=== PATIENT | female | born 2005 ===

== ENCOUNTER 2024-05-14 16:16 | Emergency (ER) | payer OTHER, SELFPAY ==
[2024-05-14 16:16] VITALS: BMI 32.9
[2024-05-14 16:18] VITALS: BP 112/72
[2024-05-14] MEDS: ZOFRAN 4 MG IV ×2 (16:40→18:11)
[2024-05-14 16:44] LABS: % Basophils 0.3 % (0-2); % Immature Granulocytes 0.3 % (0-0.5); % Monocytes 1.5 % (1.7-9.3); % Neutrophils 90.9 % (42.2-75.2); Absolute Lymphocytes 0.8 10^3/uL (1.2-3.4); Absolute Monocytes 0.2 10^3/uL (0.1-0.6); Absolute Neutrophils 9.8 10^3/uL (1.4-6.5); Hematocrit 40.5 % (37.0-47.0); Hemoglobin 13.4 g/dL (12.0-16.0); Mean Corp Hgb Conc. 33.1 g/dL (33.0-37.0); Mean Corpuscular Hgb 26.1 pg (27.0-31.0); Mean Corpuscular Volume 78.9 fL (81.0-99.0); Mean Platelet Volume 9.1 fL (7.4-10.4); Nucleated Red Blood Cells % 0 %; Platelet Count 368 10^3/uL (130-400); Red Blood Cell Count 5.13 10^6/uL (4.20-5.40); White Blood Cell Count 10.8 10^3/uL (4.8-10.8)
[2024-05-14 16:53] LABS: HCG, Serum Qualitative Screen Negative
[2024-05-14 17:00] LABS: ALT (SGPT) 31 U/L (0-35); AST (SGOT) 31 U/L (14-36); Albumin 5.2 g/dl (3.5-5.0); Alkaline Phosphatase 85 U/L (38-126); Blood Urea Nitrogen 11 mg/dl (7-17); Calcium 10.2 mg/dl (8.4-10.2); Carbon Dioxide 21 mmol/L (22-30); Chloride 102 mmol/L (98-107); Glucose 130 mg/dl (70-99); Lipase 33 U/L (23-300); Potassium 4.5 mmol/L (3.5-5.1); Sodium 139 mmol/L (135-145); Total Bilirubin 0.7 mg/dl (0.2-1.3); eGFR > 60.00
[2024-05-14] MEDS: TORADOL 15 MG IV (18:12)
[2024-05-14 18:22] VITALS: BP 122/55
--- NOTE | 2024-05-14 18:35 | ED.GENMED ---
History of Present Illness
<Kya Morales, DIRECTOR OF PATIENT SAFETY - Last Filed: 05/14/24 23:25>
General
Chief Complaint: Abdominal Pain
Source: patient and family (mom at bedside)
Exam Limitations: none
Time Seen by Provider: 05/14/24 17:32
Nursing documentation reviewed up to this point in time: agreed with
History of Present Illness
History of Present Illness:
19 yo female with no significant PMHX states she awakened at 4 a.m, with N/V/D and generalized stomach pains. Vomited several times, then dry heaving. Last emesis 40 minutes ago, received Zofran in Triage and feels better but still a little
nauseated. Had large diarrheal non bloody stool 6 a.m and a few little squirts' since. No known sick contacts, no recent travel. Denies fever, CP, SOB. Abdominal pain was 7/10 earlier, now 5/10. Denies UTI symptoms.
Past History
<Kya Morales, DIRECTOR OF PATIENT SAFETY - Last Filed: 05/14/24 23:25>
Past History
ED Past Medical History: Asthma
ED Past Surgical History: None
Social History
Tobacco: Non-smoker
Alcohol: None
Personal: Single
Living: with family
Review of Systems
<Kya Morales, DIRECTOR OF PATIENT SAFETY - Last Filed: 05/14/24 23:25>
Review of Systems
Allergies reviewed?: Yes
All Other Systems: ROS reviewed and negative except as documented in HPI and ROS
Constitutional: Denies fever
EENT: Denies sore throat
Respiratory: Denies trouble breathing
Cardiac: Denies chest pain
ABD/GI: Reports abdominal pain, nausea, vomiting and diarrhea; Denies bloody stools or black stools
: Denies dysuria, frequency, difficulty voiding or urgency
Musculoskeletal: Reports no symptoms
Skin: Reports no symptoms
Neurological: Reports no symptoms
Phy Exam
<Kya Morales, DIRECTOR OF PATIENT SAFETY - Last Filed: 05/14/24 23:25>
Physical Exam
Physical Exam:
GENERAL: No acute distress. A&Ox3.
CONSTITUTIONAL: Afebrile.
EYES: clear, conjunctivae normal
ENMT: moist mucus membranes, Pharynx nl
RESPIRATORY: Regular respirations, nonlabored, lungs clear.
CARDIOVASCULAR: Regular rate and rhythm, no murmurs, no rubs.
GI: Soft, nontender, normal BS
MUSCULOSKELETAL: Moves with ease. Well perfused.
SKIN: Warm, dry, pink
PSYCH: Normal mood and affect. Well kept, interactive and appropriate
NEUROLOGIC: Awake, alert and oriented. No focal neurological deficits
Course
<Kya Morales, DIRECTOR OF PATIENT SAFETY - Last Filed: 05/14/24 23:25>
Orders/Labs/Results
Orders:
Orders
05/14/24 16:22
Test Result ONCE
05/14/24 16:29
Complete Blood Count/With Diff Urgent
Comprehensive Metabolic Panel Urgent
HCG, Serum Qualitative Screen Urgent
Lipase Urgent
05/14/24 16:38
Ondansetron Injectable [Zofran] 4 mg .ROUTE .STK-MED ONE
05/14/24 16:40
Ondansetron Injectable [Zofran] 4 mg IV NOW STA
05/14/24 18:05
Ketorolac [Toradol] 15 mg IV NOW STA
Ondansetron Injectable [Zofran] 4 mg IV NOW STA
05/14/24 19:53
0.9% Sodium Chloride 250 ml [Nss] 250 ml IV BOLUS
05/14/24 19:54
Metoclopramide [Reglan] 5 mg IV NOW STA
Abnormal Lab Results
05/14/24
16:29
MCV 78.9 L fL
(81.0-99.0)
MCH 26.1 L pg
(27.0-31.0)
Absolute Neuts (auto) 9.8 H 10^3/uL
(1.4-6.5)
Absolute Lymphs (auto) 0.8 L 10^3/uL
(1.2-3.4)
Neutrophils % 90.9 H %
(42.2-75.2)
Lymphocytes % 7.0 L %
(20.5-51.1)
Monocytes % 1.5 L %
(1.7-9.3)
Carbon Dioxide 21 L mmol/L
(22-30)
Glucose 130 H mg/dl
(70-99)
Albumin 5.2 H g/dl
(3.5-5.0)
05/14/24 16:29
05/14/24 16:29
Vital Signs
Initial and Last Documented VS:
Initial Vital Signs
Temp Pulse Resp BP Pulse Ox
97.9 F 96 16 112/72 100
05/14/24 16:18 05/14/24 16:18 05/14/24 16:18 05/14/24 16:18 05/14/24 16:18
Last Documented Vital Signs
Temp Pulse Resp BP Pulse Ox
98.9 F 100 20 108/65 98
05/14/24 18:22 05/14/24 22:48 05/14/24 22:48 05/14/24 22:48 05/14/24 22:48
<Debby Martins MD - Last Filed: 05/14/24 19:41>
Orders/Labs/Results
Orders:
Orders
05/14/24 16:22
Test Result ONCE
05/14/24 16:29
Complete Blood Count/With Diff Urgent
Comprehensive Metabolic Panel Urgent
HCG, Serum Qualitative Screen Urgent
Lipase Urgent
05/14/24 16:38
Ondansetron Injectable [Zofran] 4 mg .ROUTE .STK-MED ONE
05/14/24 16:40
Ondansetron Injectable [Zofran] 4 mg IV NOW STA
05/14/24 18:05
Ketorolac [Toradol] 15 mg IV NOW STA
Ondansetron Injectable [Zofran] 4 mg IV NOW STA
05/14/24 19:53
0.9% Sodium Chloride 250 ml [Nss] 250 ml IV BOLUS
05/14/24 19:54
Metoclopramide [Reglan] 5 mg IV NOW STA
Abnormal Lab Results
05/14/24
16:29
MCV 78.9 L fL
(81.0-99.0)
MCH 26.1 L pg
(27.0-31.0)
Absolute Neuts (auto) 9.8 H 10^3/uL
(1.4-6.5)
Absolute Lymphs (auto) 0.8 L 10^3/uL
(1.2-3.4)
Neutrophils % 90.9 H %
(42.2-75.2)
Lymphocytes % 7.0 L %
(20.5-51.1)
Monocytes % 1.5 L %
(1.7-9.3)
Carbon Dioxide 21 L mmol/L
(22-30)
Glucose 130 H mg/dl
(70-99)
Albumin 5.2 H g/dl
(3.5-5.0)
05/14/24 16:29
05/14/24 16:29
Vital Signs
Initial and Last Documented VS:
Initial Vital Signs
Temp Pulse Resp BP Pulse Ox
97.9 F 96 16 112/72 100
05/14/24 16:18 05/14/24 16:18 05/14/24 16:18 05/14/24 16:18 05/14/24 16:18
Last Documented Vital Signs
Temp Pulse Resp BP Pulse Ox
98.9 F 100 20 108/65 98
05/14/24 18:22 05/14/24 22:48 05/14/24 22:48 05/14/24 22:48 05/14/24 22:48
<Kya Morales NP - Last Filed: 05/14/24 23:25>
MDM/Problems Addressed
Differential Diagnosis Includes:
Viral gastroenteritis, dehydration
MDM/Problems Addressed:
19 yo female with no significant PMHX states she awakened at 4 a.m, with N/V/D and generalized stomach pains. Vomited several times, then dry heaving. Last emesis 40 minutes ago, received Zofran in Triage and feels better but still a little
nauseated. Had large diarrheal non bloody stool 6 a.m and a few little squirts' since. No known sick contacts, no recent travel. Denies fever, CP, SOB. Abdominal pain was 7/10 earlier, now 5/10. Denies UTI symptoms.
Afebrile, NAD
Abdomen soft no significant tenderness
5:00 p.m.
CBC with no clinically significant abnormality
CMP: No clinically significant abnormality
hCG negative
5:30 PM
Patient states she is still nauseous and retching, second dose of Zofran, ordered Toradol for abdominal pain.
Discussed with pt and mom, Afebrile, no UTI s&s, abd soft, no specific areas of tenderness, labs unremarkable, no sign of obstruction, kidney stone, diverticulitis, symptoms less than 24 hours, no indication for imaging.
7:30 p.m.
Case discussed with Dr. Martins who evaluated pt
9:30 p.m.
Pt feeling better, tolerating po fluids.
Given rx for Zofran prn
AT mom's request Dr Martins back in to chat. OK for discharge
Ambulated out with normal gait
<Kya Moralse DIRECTOR OF PATIENT SAFETY - Last Filed: 05/14/24 23:25>
*Critical Care Note
Total Time (30-74mins, 75-104mins- exclusive of procedures): Not Applicable
ED Attending Note
<Kya Morales DIRECTOR OF PATIENT SAFETY - Last Filed: 05/14/24 23:25>
-
Portions of this chart may have been created with voice recognition software.� Occasional wrong word or��sound alike� substitutions may have occurred due to the inherent limitations of voice recognition software.
<Debby Martins MD - Last Filed: 05/14/24 19:41>
ED Attending Note
Patient seen and examined by attending physician: Yes
I performed the substantive portion of visit, reviewed & personally made and approve the management plan that is documented in note by myself or EVA.: Yes
ED Attending Note:
19-year-old female who who felt perfectly well going to bed woke at 4 AM with complaints of abdominal discomfort, nausea. She had a episode of nonbloody diarrhea followed by vomiting. Since then she has had very very infrequent small-volume
stools, but multiple episodes of nonbloody vomiting throughout the day such that she is unable to tolerate eating or drinking. She denies fever, chills, chest pain, shortness of breath, urinary symptoms, back pain. She describes abdominal
discomfort across her mid abdomen that gets better after she vomits and then builds again. Status post meds and treatment here, she was able to urinate, is thirsty, but still feels quite nauseous. On exam, heart regular rate and rhythm, lungs CTA,
not sick. Abdomen soft, no rebound or guarding, nonspecific tenderness to palpation at right mid and left mid quadrant. No right lower quadrant pain. Strongly suspect viral gastroenteritis, highly doubt appendicitis, cholecystitis, etc. given
exam, inconsistent/episodic pain, labs, etc. Will give more IV fluids and antiemetics and reassess.
Discharge Plan
Departure
Patient Disposition: Home (Routine Discharge)
Date of Disposition: 05/14/24
Time of Disposition: 21:34
Patient with high blood pressure during this ER visit?: No
Condition: Good
Discharge Problem:
Gastroenteritis
Instructions: Viral gastroenteritis in adults
Prescriptions:
New
ondansetron 4 mg tablet,disintegrating
4 mg PO Q8H PRN (Reason: nausea and vomiting) 4 Days Qty: 12 0RF
Referrals:
MAYLIN ASHER [Other] - As needed
Activity Restrictions/Additional Instructions:
As we discussed, use the Zofran as needed for nausea and vomiting.
See your doctor in 3 to 5 days if you are not significantly better by then
Return here immediately for worsening abdominal pain, fever, bloody diarrhea or feeling sicker in any way.
Interventions
Interventions:
*Risk Screen - Suicide Last Done: 05/14/24 16:20
*General Assessment Last Done: 05/14/24 22:48
*Neglect/Abuse Screening Last Done: 05/14/24 16:20
ED- Fall Risk Assessment Last Done: 05/14/24 18:19
*ED COVID-19 Vaccine History Last Done: 05/14/24 22:48
*Nursing Disposition Last Done: 05/14/24 22:48
LI-Msrqhx-Mygeaogadv Assessment Last Done: 05/14/24 18:19
Discharge Date and Time
Discharge Date/Time: 05/14/24 22:30
Print Language: SINHALA
[2024-05-14] MEDS: REGLAN 5 MG IV (19:56)
[2024-05-14] MEDS: NSS 250 IV (19:57)
[2024-05-14 22:48] VITALS: BP 108/65
== END 2024-05-14 22:30 | disposition home or self-care (01) ==
LOC: EMR 16:16
PROVIDERS: Emergency Medicine; EMERGENCY PHYSICIAN Emergency Medicine
DX: K52.9 Noninfective gastroenteritis and colitis, unspecified (principal); J45.909 Unspecified asthma, uncomplicated
CPT/HCPCS: 99283; 96374; 96375; 96376; 96361; 80053; 83690; 84703; 85025